=== PATIENT | female | born 1990 | race Caucasian/White ===

== ENCOUNTER → 2019-12-27 14:46 | Outpatient (BNVA) | payer BC, SELFPAY | PROVIDERS: Visit Provider Nurse Practitioner Family | DX: R30.0 Dysuria (principal); N39.0 Urinary tract infection, site not specified | CPT/HCPCS: 80053; 81000; 87077; 87086; 87186 ==

== ENCOUNTER → 2021-04-30 14:14 | Outpatient (BNVA) | payer OTHER, BC, SELFPAY | PROVIDERS: PCP Family Medicine; Visit Provider Registered Nurse Neonatal Intensive Care | DX: J02.0 Streptococcal pharyngitis (principal); Z20.822 Contact with and (suspected) exposure to COVID-19 | CPT/HCPCS: 87635; 87880 ==

== ENCOUNTER → 2021-05-01 01:34 | Outpatient (BNVA) | payer OTHER, BC, SELFPAY | PROVIDERS: PCP Family Medicine; Visit Provider Registered Nurse Neonatal Intensive Care | DX: J02.0 Streptococcal pharyngitis (principal); Z20.822 Contact with and (suspected) exposure to COVID-19 | CPT/HCPCS: 87631 ==

== ENCOUNTER → 2021-05-11 14:02 | Outpatient (BNVA) | payer OTHER, BC, SELFPAY | PROVIDERS: Visit Provider Obstetrics & Gynecology | DX: O20.9 Hemorrhage in early pregnancy, unspecified (principal) | CPT/HCPCS: 84702; 85025; 86850; 86900 ==

== ENCOUNTER 2021-05-13 07:56 | Outpatient (CLI) | payer OTHER, SELFPAY | END 2021-05-13 07:57 | disposition home or self-care (01) | LOC: LAB 08:05 | PROVIDERS: Visit Provider Obstetrics & Gynecology | DX: O20.0 Threatened abortion (principal) | CPT/HCPCS: 84702 ==

== ENCOUNTER → 2021-06-16 11:23 | Outpatient (BNVA) | payer OTHER, MEDICAID, SELFPAY | PROVIDERS: Visit Provider Obstetrics & Gynecology | DX: R87.612 Low grade squamous intraepithelial lesion on cytologic smear of cervix (LGSIL) | CPT/HCPCS: 84315; 87624 ==

== ENCOUNTER 2021-07-14 06:42 | Outpatient (CLI) | payer OTHER, MEDICAID, SELFPAY ==
--- NOTE | 2021-07-14 07:15 | US_ITS ---
WS: [id number] TRANSABDOMINAL PELVIC AND TRANSVAGINAL PELVIC ULTRASOUND HISTORY: R10.2 - Pelvic and perineal pain COMPARISON: None available. Uterus: 8.0 cm x 5.4 cm x 3.2 cm. Normal size anteverted uterus. No fibroid or mass. Endometrium: 0.5 cm. Normal homogeneous endometrium. Right ovary: 5.0 cm x 5.3 cm x 3.2 cm. There is a moderate-sized cyst in the RIGHT adnexa associated with the RIGHT ovary. Cyst measures 4.9 x 2.7 x 4.1 cm. Very little adjacent ovarian tissue. There ar e a few small septations and probably daughter cysts within the RIGHT ovary. Limited color Doppler is identified within the visualized ovarian tissue. Left ovary: 2.2 cm x 1.3 cm x 2.0 cm. Seen best on transabdominal imaging. Normal size. Normal vascul arity. No free fluid. US/US pelvic with transvaginal IMPRESSION: 1. Moderate-sized cyst associated with the RIGHT ovary with septations and pos sible daughter cyst. Cyst measures 4.9 x 2.7 x 4.1 cm. As this is not a complet master simple cyst consider follow-up in 6-8 weeks to be sure the complex cyst res olves. 2. Normal endometrium.
== END 2021-07-14 06:43 | disposition home or self-care (01) ==
LOC: RAD 06:43
PROVIDERS: Visit Provider Obstetrics & Gynecology
DX: R10.2 Pelvic and perineal pain (principal); N83.201 Unspecified ovarian cyst, right side
CPT/HCPCS: 76830; 76856

== ENCOUNTER 2021-09-24 06:56 | Outpatient (CLI) | payer MEDICAID, SELFPAY ==
--- NOTE | 2021-09-24 07:15 | US_ITS ---
WS: [id number] TRANSABDOMINAL PELVIC AND TRANSVAGINAL PELVIC ULTRASOUND HISTORY: R10.2 - Pelvic and perineal pain COMPARISON: 07/14/2021 Uterus: 7.8 cm x 5.0 cm x 3.8 cm. Normal size anteverted uterus. No fibroid or mass. Endometrium: 0.7 cm. Normal homogeneity and vascularity. Right ovary: 5.5 cm x 3.6 cm x 4.2 cm. Continued large complex cyst associated with the RIGHT ovary. Cyst measures 4.2 x 3.3 x 3.6 cm. There are low level echoes throughout. No solid component or increa sed vascularity within this cyst. Cyst has slightly increased in size although the echogenicity remai ns similar. Left ovary: 3.6 cm x 2.9 cm x 2.9 cm. There are a few small follicles. Normal vascularity. No mass. Small amount of simple free fluid in the cul-de-sac. US/US pelvic with transvaginal IMPRESSION: 1. Mild increase in size of the minimally complex RIGHT ovarian cyst since 07/14. Cyst now measures 4.2 x 3.3 x 3.6 cm. Hemorrhagic cyst versus endometrio ma should be considered. Continued imaging follow-up and [employer] ASSOCIATE evaluation recomme nded. 2. Otherwise negative.
== END 2021-09-24 06:57 | disposition home or self-care (01) ==
LOC: RAD 06:58
PROVIDERS: Visit Provider Obstetrics & Gynecology
DX: R10.2 Pelvic and perineal pain (principal); N83.209 Unspecified ovarian cyst, unspecified side
CPT/HCPCS: 76830; 76856

== ENCOUNTER 2022-06-15 11:07 | Outpatient (CLI) | payer OTHER, MEDICAID, SELFPAY ==
[2022-06-15] VITALS (16 sets, daily range): BP systolic 130–137; BP diastolic 75–78; PULSE 74–90; O2SAT 97–99; BMI 28.0
--- NOTE | 2022-06-15 11:42 | US_ITS ---
WS: [id number] ULTRASOUND OB LIMITED TECHNIQUE: Limited ultrasound examination of the fetus. CLINICAL INFORMATION: decel COMPARISON: February 23, 2022 FINDINGS: Cervix is long and closed measuring 5.1 cm. RIGHT ovarian cyst measuring 6.7 x 5.1 x 7.9 cm with a small amount of internal debris and slight mural nodularity. Recommend follow-up . Single interuterine gestation. presentation is vertex Placental location is anterior. Placenta grade: 1-2 heart rate 126 BPM. Largest vertical fluid pocket 3.6 cm Biophysical profile 8 out of 8. breathin movement: 2 tone: 2 Amniotic fluid: 2 US/US OB BPP wo NST [id number] IMPRESSION: 1. Cervix is long and closed measuring 5.1 cm. 2. presentation is vertex. 3. Largest vertical fluid pocket 3.6 cm 4. Normal biophysical profile 8 out of 8 5. Large RIGHT ovarian cyst measuring 6.7 x 5.1 x 7.9 cm with a small amount o f internal debris and slight mural nodularity. Recommend follow-up .
== END 2022-06-15 12:45 | disposition home or self-care (01) ==
LOC: OPOB 11:08 → OBGYN 11:09
PROVIDERS: Visit Provider Family Medicine
DX: O26.899 Other specified pregnancy related conditions, unspecified trimester (principal); Z3A.00 Weeks of gestation of pregnancy not specified; R10.9 Unspecified abdominal pain
CPT/HCPCS: 59025; 76819; 99211

== ENCOUNTER 2022-06-20 15:00 | Inpatient (IN) | payer OTHER, MEDICAID, SELFPAY ==
[2022-06-20] VITALS (38 sets, daily range): BP systolic 126–179; BP diastolic 63–102; PULSE 71–110; RESP 18; TEMP 36.5–36.6; O2SAT 99–100; BMI 25.8
[2022-06-20 15:45] LABS: Basophils # 0.1 10^3/uL (0.0-0.1); Basophils % 0.4 %; Eosinophils # 0.2 10^3/uL (0.0-0.8); Eosinophils % 1.4 %; Hematocrit 35.3 % (37.0-47.0); Hemoglobin 11.5 g/dL (11.5-15.3); Lymphocytes % 21.3 %; Mean Corpuscular HGB Conc 32.6 g/dL (30.0-36.0); Mean Corpuscular Hemoglobin 29.1 pg (28.0-34.0); Mean Corpuscular Volume 89.4 fl (81-99); Mean Platelet Volume 11.8 fL (7.4-10.4); Monocytes % 7.5 %; Neutrophils # 9.53 10^3/uL (1.8-7.7); Nucleated Red Blood Cells % 0 %; Platelet Count 250 10^3/cmm (130-400); Red Blood Count 3.95 10^6/uL (4.1-5.3); Red Cell Distribution Width 12.7 % (12.1-15.1); White Blood Count 13.8 10^3/uL (4.0-10.0)
[2022-06-20] MEDS: ampicillin 2,000 MG in sodium chloride 0.9% (plus) 50 ML 100 MG IV (15:45)
[2022-06-20 16:03] LABS: Nitrazine Paper, PH Positive
[2022-06-20] MEDS: miSOPROStol 100 mcg tablet 25 MCG SUBLINGUAL (16:14)
[2022-06-20] MEDS: dextrose 5%-lactated ringers 1,000 ML 125 ML IV (16:15)
--- NOTE | 2022-06-20 17:54 | P.HP_ITS ---
Providers/Chief Complaint Admitting Physician: Vishal Zamora MD Chief Complaint: Poss SROM HPI VESSEL ORDINARY SEAMAN History of Present Illness Cassy Adan is a 31 year old 3 para 1-0-1-1 female at 37 weeks and 4 days estimated gestational age presenting with spontaneous rupture of membranes. She began noticing leaking this morning at about 5:00 AM. Her membranes have been ruptured for about 12 hours assuming that is when her membranes ruptured. She presented to the hospital where she was noted to have grossly ruptured membranes that were nitrazine positive. Otherwise, she has not had any significant problems during her . There have been no other complications or concerns. Her labs are as follows. Her rubella status is immune. Her blood type is a positive. She is GBS positive. The remainder of her infectious disease profile was within normal limits. She was noted to have a complex cyst on her ultrasound. Present Details : 3 Para: 2 Review of Systems General: Reports: 10 or more systems reviewed and unremarkable except in HPI and below Const: Reports: fatigue; Denies: fever(s) Eyes: Denies: change in vision Card: Denies: chest pain Musc: Reports: back pain [place]/Lymph: Denies: easy bruising Medications/Allergies Home Medications Medication Instructions Recorded Confirmed Last Taken Type prenat.vits,tim,fxs-[id number]-[id number] 1 tab PO DAILY 05/13/21 09/29/21 Unknown History Allergies Allergy/AdvReac Type Severity Reaction Status Date / Time No Known Allergies Allergy Verified 09/29/21 08:32 PFSH VESSEL ORDINARY SEAMAN PFSH: Medical History No pertinent past medical history Denies diabetes, asthma, hypertension, seizures, DVT/PE PCP: None---used to see Dr. Dowling in [place] Surgical History No history of previous surgery Family History Family/Other Breast cancer maternal aunt, diagnosed at age 60 Cervical cancer maternal aunt x 2 Grandmother Breast cancer maternal, diagnosed at age 62 Diabetes paternal Grandfather Heart disease paternal Hypertension paternal Denies family history of Colon cancer Ovarian cancer Hyperlipidemia Uterine cancer Thyroid condition Stroke History History History 3 Term 1 0 Miscarriages/Ectopic 1 Living Children 1 Vitals/I&O/Wt Last Vital Signs Temp 97.7 F 06/20/22 14:46 Pulse 80 06/20/22 17:47 Resp 18 06/20/22 14:46 BP 133/74 06/20/22 17:47 O2 Del Method 06/20/22 15:00 Weight last 48 hrs Weight 165 lb Physical Exam Const: COMMON NORMALS: patient oriented x3 and alert HENMT: COMMON NORMALS: moist oral mucous membranes HEAD & SCALP: normal to inspection Chest: COMMONS NORMALS: normal inspection of the chest Resp: COMMON NORMALS: clear to auscultation bilaterally AUSCULTATION: clear to auscultation bilaterally Cardio: COMMON NORMALS: regular rate and regular rhythm RATE: regular rate RHYTHM: regular rhythm GI: INSPECTION: Yes normal to inspection and Yes other (Gravid) Extremity: COMMON NORMALS: normal to inspection GENERAL: Yes edema (Trace) Neuro: COMMON NORMALS: patient oriented x3, moves all extremities and no sensory deficits noted SENSORIUM/ORIENTATION: Yes alert Psych: COMMON NORMALS: mental status grossly normal Skin: COMMON NORMALS: no rashes or lesions noted GENERAL SKIN EXAM: no rashes or lesions noted Data 06/20/22 15:19 A&P Assessment and plan (1) 37 weeks gestation of : We will augment the patient's labor with Cytotec. Depending on how she responds that we will consider Pitocin. She is being placed on group B strep protocol. We anticipate vaginal delivery. We will continue group B strep protocol. (2) Spontaneous rupture of membranes: (3) Positive GBS test: Attestations Medical Necessity Statement*: I anticipate routine vaginal delivery and care Coding Level of Care Code Acute Code for Chg Fwd Diagnoses 37 weeks gestation of Z3A.37 Spontaneous rupture of membranes Positive GBS test B95.1
[2022-06-20] MEDS: ampicillin 1,000 MG in sodium chloride 0.9% (plus) 50 ML 100 MG IV ×2 (19:19→23:34)
[2022-06-20] MEDS: oxytocin 30 UNIT/500 ML BAG IV (20:45)
[2022-06-20] MEDS: lactated ringers 1,000 ML 999 ML IV (21:55)
--- NOTE | 2022-06-20 22:40 | P.ANESASSM_ITS ---
Pre-Anesthetic Assessment Height/Weight: Height 1.7 m Weight 74.843 kg Temp Pulse Resp BP O2 Del Method 97.7 F 83 18 128/69 06/20/22 14:46 06/20/22 21:04 06/20/22 14:46 06/20/22 21:04 06/20/22 15:00 Preop Diagnosis: labor epidural Familial anesthetic complications: none Was Beta Tapan taken within 24 hours: N/A Was Clonidine taken within 24 hours: N/A Last Intake: 20:00 Social Tobacco and No alcohol 1/2 pack(s) per day 11yrs pack years Exam alert, oriented x 3, clear to auscultation bilaterally and regular rate & rhythm Airway Submandibular: within normal limits Cervical ROM: within normal limits Mallampati: Class II Dentition: false (upper with tongue ring) Pulmonary None reported CV/HEM None reported None reported Hepatic None reported GI Gastroesophageal Reflux Disease (with ) Metabolic None reported Musc/skel None reported Neuropsych None reported Anesthetic Plan ASA status: 2 Anesthesia: Regional (specify below) (epidural) Risk of > 500 ml blood loss (7ml/kg in children): No Medications/Allergies Home Medications Medication Instructions Recorded Confirmed Last Taken Type prenat.vits,tim,qwk-ckpx-yesfk 1 tab PO DAILY 05/13/21 09/29/21 Unknown History Allergies Allergy/AdvReac Type Severity Reaction Status Date / Time No Known Allergies Allergy Verified 09/29/21 08:32 Current Medications Generic Name Dose Route Start Last Admin Trade Name Freq PRN Reason Stop Dose Admin Dextrose/Lactated Ringer's 1,000 mls @ 125 mls/hr 06/20/22 14:45 06/20/22 16:15 Dextrose 5%-Lactated Ringers IV 125 mls/hr .Q8H OBINNA Administration Ampicillin Sodium 1,000 mg/ 50 mls @ 100 mls/hr 06/20/22 19:15 06/20/22 19:19 Sodium Chloride IV 100 mls/hr Q4H OBINNA Administration Protocol Oxytocin 30 unit in 500 mls @ 1 mls/hr 06/20/22 20:30 06/20/22 22:05 Pitocin IV 3 milliunit/min .Q24H OBINNA 3 mls/hr Titration Protocol 1 MILLIUNIT/MIN Lactated Ringer's 1,000 mls @ 999 mls/hr 06/20/22 21:46 06/20/22 21:55 Lactated Ringers IV 999 mls/hr .Q1H1M PRN Administration See label comments [facility] Anesthesia Medical History No pertinent past medical history Denies diabetes, asthma, hypertension, seizures, DVT/PE PCP: None---used to see Dr. Dowling in [place] Surgical History No history of previous surgery Family History Family/Other Breast cancer maternal aunt, diagnosed at age 60 Cervical cancer maternal aunt x 2 Grandmother Breast cancer maternal, diagnosed at age 62 Diabetes paternal Grandfather Heart disease paternal Hypertension paternal Denies family history of Colon cancer Ovarian cancer Hyperlipidemia Uterine cancer Thyroid condition Stroke Female Reproductive History : 3 Data Anesthesia 06/20/22 15:19 Short CBC 06/20/22 Range/Units 15:19 WBC 13.8 H (4.0-10.0) 10^3/uL Hgb 11.5 (11.5-15.3) g/dL Hct 35.3 L (37.0-47.0) % MCV 89.4 (81-99) fl Plt Count 250 (130-400) 10^3/cmm Neut % (Auto) 69.0 % Neut # (Auto) 9.53 H (1.8-7.7) 10^3/uL Cardiac Studies: No Data to Display
--- NOTE | 2022-06-20 23:14 | ANES.PREANE2 ---
Pre-Anesthetic Assessment Height/Weight: Height 1.7 m Weight 74.843 kg Temp Pulse Resp BP Pulse Ox O2 Del Method 97.7 F 83 18 132/71 99 06/20/22 14:46 06/20/22 23:11 06/20/22 14:46 06/20/22 23:11 06/20/22 22:57 06/20/22 15:00 Preop Diagnosis: labor Medications/Allergies Home Medications Medication Instructions Recorded Confirmed Last Taken Type prenat.vits,tim,ozi-pnyv-awbdy 1 tab PO DAILY 05/13/21 09/29/21 Unknown History Allergies Allergy/AdvReac Type Severity Reaction Status Date / Time No Known Allergies Allergy Verified 09/29/21 08:32 Current Medications Generic Name Dose Route Start Last Admin Trade Name Freq PRN Reason Stop Dose Admin Dextrose/Lactated Ringer's 1,000 mls @ 125 mls/hr 06/20/22 14:45 06/20/22 16:15 Dextrose 5%-Lactated Ringers IV 125 mls/hr .Q8H OBINNA Administration Ampicillin Sodium 1,000 mg/ 50 mls @ 100 mls/hr 06/20/22 19:15 06/20/22 19:19 Sodium Chloride IV 100 mls/hr Q4H OBINNA Administration Protocol Oxytocin 30 unit in 500 mls @ 1 mls/hr 06/20/22 20:30 06/20/22 22:05 Pitocin IV 3 milliunit/min .Q24H OBINNA 3 mls/hr Titration Protocol 1 MILLIUNIT/MIN Lactated Ringer's 1,000 mls @ 999 mls/hr 06/20/22 21:46 06/20/22 21:55 Lactated Ringers IV 999 mls/hr .Q1H1M PRN Administration See label comments [facility] Anesthesia Medical History No pertinent past medical history Denies diabetes, asthma, hypertension, seizures, DVT/PE PCP: None---used to see Dr. Dowling in [place] Surgical History No history of previous surgery Family History Family/Other Breast cancer maternal aunt, diagnosed at age 60 Cervical cancer maternal aunt x 2 Grandmother Breast cancer maternal, diagnosed at age 62 Diabetes paternal Grandfather Heart disease paternal Hypertension paternal Denies family history of Colon cancer Ovarian cancer Hyperlipidemia Uterine cancer Thyroid condition Stroke Female Reproductive History : 3 Data Anesthesia 06/20/22 15:19 Short CBC 06/20/22 Range/Units 15:19 WBC 13.8 H (4.0-10.0) 10^3/uL Hgb 11.5 (11.5-15.3) g/dL Hct 35.3 L (37.0-47.0) % MCV 89.4 (81-99) fl Plt Count 250 (130-400) 10^3/cmm Neut % (Auto) 69.0 % Neut # (Auto) 9.53 H (1.8-7.7) 10^3/uL Cardiac Studies: No Data to Display Anesthesia Procedures Epidural Time Out Performed: Yes Consents Signed: Procedure Consent and NPO Consent Consent: requested by attending/covering physician, from patient, risks and benefits reviewed and patient agrees to proceed Lumbar Level: L3-L4 Epidural position: sitting Epidural procedure: sterile prep of area (betadine), 1% lidocaine to numb the area (3ml), 18 g needle, neg for paresthesia, test dose given, 1.5% xylocaine 1:200k epi (3ml/2ml), 0.2% Ropivacaine bolus ml (5ml), placed PCEA, no systemic response, sterile dressing applied, L.U.D. no apparent complications and 0.2% Ropiavacaine @ mls/hr (13ml/hr)
[2022-06-21] VITALS (31 sets, daily range): BP systolic 115–186; BP diastolic 62–100; PULSE 67–96; RESP 16–18; TEMP 36.6–37.3; O2SAT 97–99
[2022-06-21] MEDS: ampicillin 1,000 MG in sodium chloride 0.9% (plus) 50 ML 100 MG IV (03:49)
--- NOTE | 2022-06-21 03:54 | ANES.PROC ---
Anesthesia Procedures Procedure/Date: 06/21/22 Epidural bolus Procedure Narrative: Called to OB 5 pt complaint of left sided pain. Pt noted to be on right side. Pt placed on left side and given 1% Lidocaine MPF with 100mcg Fentanyl MPF via epidural. Monitored pt for next 2 contractions and she states much improved and just pressure noted. Will continue to monitor
[2022-06-21] MEDS: oxytocin 30 UNIT/500 ML BAG 600 UNIT IV (05:44)
--- NOTE | 2022-06-21 05:55 | PM.DELIVERY ---
Delivery Note: Date of delivery: June 21, 2022 Pre-delivery diagnoses: 1. 31-year-old 3 para 1-0-1-1 at 37 weeks estimated gestational age presenting with spontaneous rupture of membranes 2. GBS positive status Post-delivery diagnoses: Status post spontaneous vaginal delivery Procedure: Spontaneous vaginal delivery Delivering Physician: Vishal Zamora Estimated blood loss (mL): 100 Pre-Delivery Course: The patient presented to the hospital with spontaneous rupture membranes. She was having some mild contractions, but her cervix was still firm and thick. Cytotec x1 was placed. Group B strep protocol was placed. And she received multiple doses. Pitocin was initiated. Delivery: DELIVERY: The patient progressed to complete without difficulty. She delivered a male with a weight of 6 pounds 2 ounces with Apgars of 10, 10. The baby was delivered from the CORONA position and placed on the mother's abdomen. The cord was then clamped and cut. There was no nuchal cord. There was no meconium. The placenta and 3 vessel cord were delivered intact shortly thereafter. The perineum and vaginal vault were carefully examined. No lacerations were noted. Both the mother and the baby were in stable condition. Post-Delivery Status: Good History History History 3 Term 1 0 Miscarriages/Ectopic 1 Living Children 1 A&P Assessment and plan (1) Spontaneous vaginal delivery: I anticipate routine care. (2) Positive GBS test: (3) 37 weeks gestation of : Coding Level of Care Code Acute Code for Chg Fwd Diagnoses Spontaneous vaginal delivery O80 Positive GBS test B95.1 37 weeks gestation of Z3A.37
--- NOTE | 2022-06-21 08:07 | ANE.PACU2 ---
Inpatient post-anesthesia follow up: Airway intact: Yes Vital signs: Temperature 99.0 F Pulse Rate 86 Respiratory Rate 18 Blood Pressure 154/90 Pulse Oximetry 99 Oxygen Delivery Me thod Room Air Oxygen Flow Rate Fraction of Inspir ed Oxygen Hydration adequate: Yes Nausea and vomiting: No Pain level: 2 Mental status: Baseline
[2022-06-21] MEDS: docusate sodium 100 mg Capsule PO ×2 (08:20→20:17)
[2022-06-21] MEDS: ibuprofen 800 mg tablet PO ×3 (08:20→20:17)
[2022-06-21] MEDS: prenatal vitamin Capsule 1 CAP PO (08:20)
[2022-06-21] MEDS: HYDROcodone-acetaminophen 5-325 mg Tablet PO ×2 (14:06→20:17)
[2022-06-21] MEDS: benzocaine-menthol 78 gm Canister 1 SPRAY TOPICAL (15:06)
[2022-06-21 18:11] LABS: Hematocrit 33.3 % (37.0-47.0); Mean Corpuscular Hemoglobin 29.5 pg (28.0-34.0); Mean Corpuscular Volume 89.3 fl (81-99); Mean Platelet Volume 11.8 fL (7.4-10.4); Platelet Count 241 10^3/cmm (130-400); Red Blood Count 3.73 10^6/uL (4.1-5.3); White Blood Count 21.3 10^3/uL (4.0-10.0)
[2022-06-22 04:02] VITALS: BP 130/82; PULSE 74; RESP 18; TEMP 36.6; O2SAT 99
[2022-06-22 07:48] VITALS: BP 148/91; PULSE 70; RESP 16; TEMP 36.7; O2SAT 100
--- NOTE | 2022-06-22 08:07 | P.DS_ITS ---
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 Her labor was augmented with Cytotec and Pitocin. She was also GBS positive and was on group B strep protocol throughout her labor. She progressed to complete and had an unremarkable vaginal delivery of a healthy male infant. Her course was unremarkable. Her bleeding was within normal limits. Her pain was well controlled. Her breast-feeding went reasonably well, but she was concerned about volume the baby was getting, and elected to supplement with formula. Information Peripartum Data: Infant Delivery Method: Vaginal Physical Exam Narrative: The patient is alert. She appears comfortable. Her heart has a regular rate and rhythm with no murmurs appreciated. Lungs are clear to auscultation bilaterally. Her fundus is firm and below the umbilicus. Urinary Catheter Management: Pineda: Cath Placed During This Visit: yes Urinary Catheter Date of Insertion: 06/20/22 Urinary Catheter Time of Insertion: 23:39 History History History 3 Term 1 0 Miscarriages/Ectopic 1 Living Children 1 Discharge Data Studies Completed and Pending Laboratory Results WBC 21.3 10^3/uL (4.0-10.0) H 06/21/22 17:45 RBC 3.73 10^6/uL (4.1-5.3) L 06/21/22 17:45 Hgb 11.0 g/dL (11.5-15.3) L 06/21/22 17:45 Hct 33.3 % (37.0-47.0) L 06/21/22 17:45 MCV 89.3 fl (81-99) 06/21/22 17:45 MCH 29.5 pg (28.0-34.0) 06/21/22 17:45 MCHC 33.0 g/dL (30.0-36.0) 06/21/22 17:45 RDW 13.0 % (12.1-15.1) 06/21/22 17:45 Plt Count 241 10^3/cmm (130-400) 06/21/22 17:45 MPV 11.8 fL (7.4-10.4) H 06/21/22 17:45 Neut % (Auto) 69.0 % 06/20/22 15:19 Lymph % (Auto) 21.3 % 06/20/22 15:19 [place] % (Auto) 7.5 % 06/20/22 15:19 Eos % (Auto) 1.4 % 06/20/22 15:19 Baso % (Auto) 0.4 % 06/20/22 15:19 Neut # (Auto) 9.53 10^3/uL (1.8-7.7) H 06/20/22 15:19 Lymph # (Auto) 3.0 10^3/uL (0.8-4.8) 06/20/22 15:19 [place] # (Auto) 1.0 10^3/uL (0.2-0.9) H 06/20/22 15:19 Eos # (Auto) 0.2 10^3/uL (0.0-0.8) 06/20/22 15:19 Baso # (Auto) 0.1 10^3/uL (0.0-0.1) 06/20/22 15:19 Nucleated RBC % (auto) 0 % 06/20/22 15:19 Nucleated RBCs # 0.0 /100WBC 06/20/22 15:19 Vitals Last Vital Signs Temp 98.0 F 06/22/22 07:48 Pulse 70 06/22/22 07:48 Resp 16 06/22/22 07:48 BP 148/91 06/22/22 07:48 Pulse Ox 100 06/22/22 07:48 O2 Del Method 06/22/22 07:48 Discharge Plan Discharge Patient Disposition: Home Prescriptions: New ibuprofen 800 mg Tablet 800 mg PO TID Qty: 45 0RF Continued prenat.vits,tim,xtc-odkq-rqsua Tablet 1 tab PO DAILY Discharge Orders: Discharge Order (Routine); Ordered 06/22/22 Ordered By: Vishal Zamora Referrals: Suzanne Berry MD [Physician] - 6 Weeks Discharge Diet: Usual diet Discharge Activity: Limit activity as instructed Patient Instructions: Opioid Safety 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
[2022-06-22 09:18] VITALS: BP 142/90; PULSE 87; RESP 16; TEMP 36.8; O2SAT 99
[2022-06-22 09:20] VITALS: BP 142/90; PULSE 87; RESP 16; TEMP 36.8; O2SAT 99
== END 2022-06-22 09:21 | disposition home or self-care (01) | DRG 807 ==
LOC: OPOB 06-28 08:06 → OBGYN 06-28 08:07
PROVIDERS: Family Medicine; Admitting Provider Family Medicine; Visit Provider Family Medicine
DX: O99.824 Streptococcus B carrier state complicating childbirth (principal); Z37.0 Single live birth; Z3A.37 37 weeks gestation of pregnancy; O99.334 Smoking (tobacco) complicating childbirth
CPT/HCPCS: 12345; 36415; 51702; 59025; 59409; 83986; 85025; 85027; 96374; 99211; J0290; J2590; J2795; J3010; J7120; J7121

== ENCOUNTER → 2024-05-02 14:12 | Outpatient (BNVA) | payer OTHER, SELFPAY | PROVIDERS: PCP Family Medicine; Visit Provider Podiatrist Foot & Ankle Surgery | DX: M79.671 Pain in right foot (principal); M79.672 Pain in left foot; M20.11 Hallux valgus (acquired), right foot; M20.12 Hallux valgus (acquired), left foot | CPT/HCPCS: 73630 ==

== ENCOUNTER 2024-07-16 05:55 | Day surgery (SDC) | payer OTHER, SELFPAY ==
[2024-07-16] VITALS (10 sets, daily range): BP systolic 137–159; BP diastolic 89–109; PULSE 64–96; RESP 11–21; TEMP 36.1–36.8; O2SAT 98–100; BMI 20.9
--- NOTE | 2024-07-16 06:02 | ANES.PREANE2 ---
Pre-Anesthetic Assessment Height/Weight: Height 5 ft 7 in Preop Diagnosis: Hallux valgus Operation Date: 07/16/24 07:00 Proposed Procedures p Bunionectomy Lapidus(Right) - Albert Funez DPM Was Beta Tapan taken within 24 hours: N/A Was Clonidine taken within 24 hours: N/A Social Tobacco and No alcohol Airway Submandibular: within normal limits Cervical ROM: within normal limits Mallampati: Class I Comments: Comments: Edentulous Anesthetic Plan ASA status: 3 Anesthesia: General Other: No prior issues with anesthesia NPO since yesterday evening Patient states that she normally runs high on blood pressure. Preop BP 159/109. No antihypertensives. Current smoker History of anxiety, on chronic diazepam METs greater than 4 Plan for general anesthesia with LMA Medications/Allergies Home Medications ?Medication ?Instructions ?Recorded ?Confirmed ?Last Taken ?Type norethindrone-ethinyl estradiol 1 tab PO DAILY 06/03/23 07/16/24 07/15/24 History triphasic 0.5/1/0.5 mg-35 mcg tablet diazepam 5 mg tablet 5 mg PO BID PRN anxiety 30 days 11/09/23 07/16/24 07/10/24 Rx #60 tabs Custom Orthotics #1 ea 05/02/24 07/11/24 Unknown Rx crutches #1 ea 07/11/24 07/11/24 Unknown Rx knee scooter #1 ea 07/11/24 07/11/24 Unknown Rx Allergies Allergy/AdvReac Type Severity Reaction Status Date / Time No Known Allergies Allergy Verified 07/16/24 06:04 [facility] Anesthesia Medical History (Updated 07/13/24 @ 09:51 by Lesia Riggs RN) Mucinous cystadenocarcinoma of right ovary Family history of ovarian cancer Ovarian torsion No pertinent past medical history Denies diabetes, asthma, hypertension, seizures, DVT/PE PCP: None---used to see Dr. Dowling in [place] Surgical History (Updated 07/13/24 @ 09:51 by Lesia Riggs RN) No history of previous surgery Family History Family/Other Breast cancer maternal aunt, diagnosed at age 60 Cervical cancer maternal aunt x 2 Grandmother Breast cancer maternal, diagnosed at age 62 Diabetes paternal Grandfather Heart disease paternal Hypertension paternal Denies family history of Colon cancer Ovarian cancer Hyperlipidemia Uterine cancer Thyroid disease Stroke Social History Smoking and tobacco/nicotine status: never used tobacco/nicotine Alcohol intake: never Substance/Drug Use: never Adopted: No service: No Current occupational exposures/hazards: No Do you think of yourself as: Straight/Heterosexual Data Anesthesia Cardiac Studies: No Data to Display
[2024-07-16] MEDS: scopolamine 1 mg PATCH 1 PATCH TRANSDERMA (06:36)
[2024-07-16] MEDS: CELEcoxib 200 mg Capsule 400 MG PO (06:36)
[2024-07-16] MEDS: gabapentin 300 mg Capsule PO (06:36)
[2024-07-16] MEDS: midazolam 1 mg/mL INJ 2 mL 2 MG IVP (06:37)
[2024-07-16] MEDS: sodium chloride 0.9% 1,000 ML 30 ML IV (06:39)
--- NOTE | 2024-07-16 06:50 | P.HPUD_ITS ---
Surgery/Procedure H&P Update DATE OF PROCEDURE: July 16, 2024 DATE H&P PERFORMED: 07/11/24 H&P UPDATE INFORMATION: I have reviewed H&P completed within last 30 days, I have examined patient prior to procedure, No changes to prior documentation, H&P is in [facility] EMR on date indicated and Risks and benefits of the procedure reviewed PREOP DIAGNOSIS: Hallux valgus PLANNED PROCEDURE: Operation Date: 07/16/24 07:00 Proposed Procedures p Bunionectomy Lapidus(Right) - Albert Funez DPM
[2024-07-16] MEDS: ceFAZolin 2,000 mg SDV 2000 MG IVP (07:22)
--- NOTE | 2024-07-16 08:05 | ANES.PROC ---
Anesthesia Procedures Procedure/Date: 07/16/24 Nerve Block ^: Nerve Block 1: Main Anesthesia: general anesthesia Time Out Performed: Yes Consent: requested by attending/covering physician and from patient Nerve block location: popliteal Anesthesia monitors applied: pulse oximetry, EKG, BP cuff and oxygen Nerve block position: supine Anesthetic Used: ropivicaine 0.5% Amount of anesthesia used (mL): 25 Ultrasound used to: recognize landmarks Nerve Stimulator Used?: Yes Interscalene/Femoral BLK: other needle (pjunk) Injection: neg aspiration of heme Patient Tolerated Procedure: well Complications: none Additional Comments: Decadron 4 mg added to block Nerve Block 2: Main Anesthesia: general anesthesia Time Out Performed: Yes Consent: requested by attending/covering physician and from patient Nerve block location: adductor canal Anesthesia monitors applied: pulse oximetry, EKG, BP cuff and oxygen Nerve block position: supine Anesthetic Used: ropivicaine 0.5% Amount of anesthesia used (mL): 15 Ultrasound used to: recognize landmarks Nerve Stimulator Used?: Yes Interscalene/Femoral BLK: other needle (pjunk) Injection: neg aspiration of heme Patient Tolerated Procedure: well Complications: none
--- NOTE | 2024-07-16 08:23 | XR_ITS ---
WS: [id number] Exam: XR foot RT 2V [id number] Date/Time of Exam: 07/16/2024 8:23 AM Reason For Exam: OR PIC, BUNIONECTOMY AP and lateral intraoperative images of the RIGHT foot are submitted. There is operative fusion of the first metatarsal cuneiform joint with plate and screw fixation. Alignment appears to be satisfactory.
--- NOTE | 2024-07-16 09:35 | W.PM.BPON ---
Date of procedure: 07/16/2024 Surgeon name: Lars GhoshPOnelia Junior Programmer Analyst(s) name(s): Juan Luis Procedure(s) performed: Right foot Lapidus bunionectomy Description of findings: Right foot hallux valgus Estimated blood loss: 5 cc Tourniquet time: 99 minutes Specimen(s) removed: None Post-operative diagnosis: Right foot hallux valgus
--- NOTE | 2024-07-16 09:36 | PM.OP ---
Operative Report Date of procedure: July 16, 2024 Surgeon: Albert Funez DPM Procedure: Date of procedure: 07/16/2024 Pre-op diagnosis: Right foot hallux valgus Post-op diagnosis: Same Post-op findings: Right foot hallux valgus Procedure done: Right foot Lapidus bunionectomy CPT 56302 Implants: 2.7 headed short threaded compression screw, 6 hole T plate from [employer] allograft bone graft, 1 cc of DBM Specimens removed: None Surgeon: Dr. Albert Funez DPM Soaping Machine Back Tender: Juan Luis Estimated blood loss: 5 cc Tourniquet time: 99 minutes Complications: None Patient is a 34-year-old female that has a history of right foot hallux valgus. The patient has had the aforementioned chief complaint for some time. Conservative treatment measures have been attempted and the patient has opted for surgical intervention at this time. A lengthy discussion regarding the procedure, including risks and complications has been had with the patient and is noted in the recent clinic note. Written and verbal consent have been obtained. All patient questions have been answered to the patient?s satisfaction. No written or verbal guarantees have been given or implied. The patient has been NPO since midnight. The history has been reviewed and the history and physical is current. The signed consent was confirmed and placed in the patient chart. Patient imaging has been reviewed and is consistent with the diagnosis. Under mild sedation, the patient was brought into the operating room and placed on the table in the supine position. IV antibiotics were given by the anesthesia team as preoperative surgical prophylaxis. General sedation was then performed by the anesthesiateam. A popliteal block was performed with anesthesia department. A pneumatic tourniquet was then placed about the right thigh. The operative extremity was then prepped and draped in the usual fashion. The extremity was then elevated and exsanguinated before the tourniquet was inflated to 325 mmHg. After inflation, the following procedure was then performed. Attention was directed to the medial aspect of the right foot where a 5 cm incision was made overlying the first tarsometatarsal joint using a #15 blade. Dissection was carried down through subcutaneous and superficial fascia to the level of the first tarsometatarsal joint. After exposing the joint and releasing capsular attachments sagittal bone saw was used to resect the first tarsometatarsal articulation removing cartilage and subchondral bone. Attention was then directed distally where a lateral soft tissue release was performed percutaneously using a #15 blade. Due to patient's Cornell's foot type extension of first metatarsal was warranted. 2 allograft bone graft discs were inserted into the arthrodesis site after fenestration drill bit was used to fenestrate the articular surfaces. These bone grafts were soaked in whole blood prior to insertion. The first metatarsal was reduced to appropriate anatomic position. 2.7 headed compression screw was then driven across the arthrodesis site. Good compression across the joint was noted. Next, 6 hole T plate from [employer] was used to span the arthrodesis site. Good positioning of orthopedic hardware and first ray was noted clinically as well as on C-arm imaging. The site was irrigated with sterile saline before 1 cc of demineralized bone matrix was injected into the first tarsometatarsal arthrodesis site. Attention was then directed to closure. Deep tissue was closed with 3-0 Vicryl followed by skin closure with 4-0 Vicryl subcutaneously. Steri-Strips were then applied. Stab incisions were closed with 4-0 nylon. Incisions were dressed with Xeroform, 4 x 4 gauze, Kerlix, Med. Patient was placed in a cam boot. The patient tolerated the procedure and anesthesia well and without complication. The patient was transported from the operating room to the recovery room with vital signs stable and vascular status intact to all digits of the right foot. The patient was given both written and verbal instructions to remain non weightbearing to the operative extremity, to keep dressings/splint clean, dry and intact and to take pain medication as directed. The patient will follow-up in the outpatient setting at their scheduled appointment. The patient was discharged with my personal number and was instructed to call if any questions or issues should arise. They were discharged home once anesthesia criteria was met.
[2024-07-16] MEDS: HYDROcodone-acetaminophen 5-325 mg Tablet 1 TAB PO (10:30)
--- NOTE | 2024-07-16 10:45 | ANE.PACU2 ---
Inpatient post-anesthesia follow up: Airway intact: Yes Vital signs: Temperature 97.2 F Pulse Rate 69 Respiratory Rate 18 Blood Pressure 138/91 Pulse Oximetry 100 Oxygen Delivery Me thod Room Air Oxygen Flow Rate Fraction of Inspir ed Oxygen Hydration adequate: Yes Nausea and vomiting: No Pain level: 1 Mental status: Baseline
[2024-07-17 06:11] LABS: OR HCG Qualitative Urine Negative (Negative)
== END 2024-07-16 10:55 | disposition home or self-care (01) ==
PROVIDERS: Student in an Organized Health Care Education/Training Program; PCP Family Medicine; Visit Provider Podiatrist Foot & Ankle Surgery
PROC: (CPT 28297; principal; 2024-07-16 07:00)
DX: M20.11 Hallux valgus (acquired), right foot (principal); F41.9 Anxiety disorder, unspecified; Z79.899 Other long term (current) drug therapy
CPT/HCPCS: 28297; 73620; 76000; 81025; C1713; C1762; C9359; J0690; J1100; J1171; J2250; J2405; J2704; J3010; J7030; J9999

== ENCOUNTER → 2024-07-30 15:25 | Outpatient (BNVA) | payer OTHER, SELFPAY | PROVIDERS: PCP Family Medicine; Visit Provider Podiatrist Foot & Ankle Surgery | DX: M79.671 Pain in right foot (principal); M20.11 Hallux valgus (acquired), right foot | CPT/HCPCS: 73630 ==

== ENCOUNTER → 2024-08-13 14:10 | Outpatient (BNVA) | payer OTHER, SELFPAY | PROVIDERS: PCP Family Medicine; Visit Provider Podiatrist Foot & Ankle Surgery | DX: Z98.890 Other specified postprocedural states (principal); M79.671 Pain in right foot; M20.11 Hallux valgus (acquired), right foot | CPT/HCPCS: 73630 ==

== ENCOUNTER → 2024-08-27 13:38 | Outpatient (BNVA) | payer MEDICAID, SELFPAY | PROVIDERS: PCP Family Medicine; Visit Provider Podiatrist Foot & Ankle Surgery | DX: Z98.890 Other specified postprocedural states (principal); M20.11 Hallux valgus (acquired), right foot | CPT/HCPCS: 73630 ==

== ENCOUNTER → 2024-09-17 15:06 | Outpatient (BNVA) | payer OTHER, MEDICAID, SELFPAY | PROVIDERS: PCP Family Medicine; Visit Provider Podiatrist Foot & Ankle Surgery | DX: M20.11 Hallux valgus (acquired), right foot (principal) | CPT/HCPCS: 73630 ==

== ENCOUNTER 2024-11-05 06:07 | Day surgery (SDC) | payer OTHER, MEDICAID, SELFPAY ==
[2024-11-05] VITALS (10 sets, daily range): BP systolic 102–138; BP diastolic 71–88; PULSE 60–78; RESP 12–18; TEMP 36.1–36.6; O2SAT 99–100; BMI 22.7
--- NOTE | 2024-11-05 | XR_ITS ---
WS: [id number] Right foot, C-arm fluoroscopy views, 11/05/2024 Clinical Data: BIA IMAGES Comparison: Right foot, 09/17/2024 Findings: Dr. Funez performed an osteotomy of the right first toe proximal phalanx and there is a screw at the head of the right second metatarsal. XR/XR foot RT min 3V* 14320 Impression: Postoperative changes of the right foot.
--- NOTE | 2024-11-05 06:25 | ANES.PREANE2 ---
Pre-Anesthetic Assessment Height/Weight: Height 5 ft 7 in Preop Diagnosis: Right bunion Operation Date: 11/05/24 07:00 Proposed Procedures p RIGHT Hallux Parish Osteotomy(Right) - Albert Funez DPM s RIGHT Second Metatarsal Jeremy Osteotomy(Right) - Albert Funez DPM Was Beta Tapan taken within 24 hours: N/A Was Clonidine taken within 24 hours: N/A (Patient has only taken clonidine 1 or 2 times to sleep) Social Tobacco and No alcohol Exam alert, oriented x 3, clear to auscultation bilaterally and regular rate & rhythm Airway Submandibular: within normal limits Cervical ROM: within normal limits Mallampati: Class II Dentition: false Comments: Comments: Upper false plate Anesthetic Plan ASA status: 2 Anesthesia: MAC Other: No prior issues with anesthesia NPO since yesterday evening Current smoker Patient has clonidine on her list but she states she is only taking it 1 or 2 times to help her sleep. None recently METs greater than 4 Plan for MAC anesthesia with local via surgeon Medications/Allergies Home Medications ?Medication ?Instructions ?Recorded ?Confirmed ?Last Taken ?Type norethindrone-ethinyl estradiol 1 tab PO DAILY 06/03/23 11/01/24 11/01/24 History triphasic 0.5/1/0.5 mg-35 mcg tablet Sole Supports #1 ea 09/17/24 10/15/24 Unknown Rx diazepam 5 mg tablet 5 mg PO .At Bedtime PRN anxiety 09/17/24 11/01/24 10/30/24 Rx #30 tabs clonidine HCl 0.1 mg tablet 0.1 mg PO .q hs #30 tabs 10/17/24 11/01/24 10/13/24 Rx Allergies Allergy/AdvReac Type Severity Reaction Status Date / Time No Known Allergies Allergy Verified 10/15/24 14:02 [facility] Anesthesia Medical History (Updated 10/20/24 @ 16:19 by Albert Funez DPM) Mucinous cystadenocarcinoma of right ovary Family history of ovarian cancer Ovarian torsion No pertinent past medical history Denies diabetes, asthma, hypertension, seizures, DVT/PE PCP: None---used to see Dr. Dowling in [place] Surgical History History of salpingectomy History of removal of ovarian cyst Hx of removal of ovary No history of previous surgery Family History Family/Other Breast cancer maternal aunt, diagnosed at age 60 Cervical cancer maternal aunt x 2 Grandmother Breast cancer maternal, diagnosed at age 62 Diabetes paternal Grandfather Heart disease paternal Hypertension paternal Denies family history of Colon cancer Ovarian cancer Hyperlipidemia Uterine cancer Thyroid disease Stroke Social History Smoking and tobacco/nicotine status: never used tobacco/nicotine Alcohol intake: never Substance/Drug Use: never Adopted: No service: No Current occupational exposures/hazards: No Do you think of yourself as: Straight/Heterosexual
--- NOTE | 2024-11-05 06:55 | P.HPUD_ITS ---
Surgery/Procedure H&P Update DATE OF PROCEDURE: November 05, 2024 DATE H&P PERFORMED: 10/15/24 H&P UPDATE INFORMATION: I have reviewed H&P completed within last 30 days, I have examined patient prior to procedure, No changes to prior documentation, H&P is in [facility] EMR on date indicated and Risks and benefits of the procedure reviewed PREOP DIAGNOSIS: Right bunion PLANNED PROCEDURE: Operation Date: 11/05/24 07:00 Proposed Procedures p RIGHT Hallux Parish Osteotomy(Right) - Albert Funez DPM s RIGHT Second Metatarsal Jeremy Osteotomy(Right) - Albert Funez DPM
[2024-11-05] MEDS: ceFAZolin 2,000 mg SDV 2000 MG IVP (07:10)
[2024-11-05] MEDS: BUPivacaine 0.5% INJ 30 mL INJECTION (07:15)
[2024-11-05 07:58] LABS: OR HCG Qualitative Urine Negative (Negative)
--- NOTE | 2024-11-05 08:14 | P.OP_ITS ---
Operative Report Date of procedure: November 05, 2024 Surgeon: Albert Funez DPM Procedure: Date of procedure: 11/05/2024 Pre-op diagnosis: Right hallux valgus, metatarsalgia Post-op diagnosis: Same Post-op findings: Right hallux valgus, elongated second metatarsal Procedure done: 1. Right foot Parish osteotomy CPT 21031 2. Right second metatarsal Ejremy osteotomy CPT 01039 Implants: 2.5 micro headless compression screw from [employer], snap off screw [employer] Specimens removed: None Surgeon: Dr. Albert Funez DPM Formal Service Waiter: Nj Estimated blood loss: 2 cc Complications: None Patient is a 34-year-old female that has a history of right hallux valgus, metatarsalgia. The patient has had the aforementioned chief complaint for some time. Conservative treatment measures have been attempted and the patient has opted for surgical intervention at this time. A lengthy discussion regarding the procedure, including risks and complications has been had with the patient and is noted in the recent clinic note. Written and verbal consent have been obtained. All patient questions have been answered to the patient?s satisfaction. No written or verbal guarantees have been given or implied. The patient has been NPO since midnight. The history has been reviewed and the history and physical is current. The signed consent was confirmed and placed in the patient chart. Patient imaging has been reviewed and is consistent with the diagnosis. Under mild sedation, the patient was brought into the operating room and placed on the table in the supine position. IV antibiotics were given by the anesthesia team as preoperative surgical prophylaxis. MAC sedation was then performed by the anesthesiateam. A pneumatic tourniquet was then placed about the right ankle. A local field block was performed using 0.5% Marcaine plain. The operative extremity was then prepped and draped in the usual fashion. The extremity was then elevated and exsanguinated before the tourniquet was inflated to 250 mmHg. After inflation, the following procedure was then performed. Attention was directed to the right foot where a percutaneous stab incision was made at the level of the hallux interphalangeal joint using a #15 blade. Mariana bur was inserted into the incision and an osteotomy was made to the proximal phalanx in standard Kenny osteotomy fashion. The osteotomy was close down and a wire was driven percutaneously from proximal medial to distal lateral across the proximal phalanx osteotomy. This maintained positioning. Drill was used to drill over the wire in preparation for 2.5 compression screw. This was then inserted over the wire across the osteotomy site. Good positioning of the screw was noted. Good alignment of the hallux was noted. Attention was then directed to the second metatarsophalangeal joint where a 4 cm incision was made over the joint using a #15 blade. Dissection was carried down through subcutaneous the superficial fascia to the level of the metatarsophalangeal joint capsule which was incised to expose the underlying second metatarsal head. Sagittal bone saw was then used to perform a Jeremy osteotomy in standard fashion. The head of the second metatarsal was translated proximally to appropriate anatomic position in regards to the metatarsal parabola. Snap off screw was then inserted across the osteotomy site to maintain position. The incisions were then irrigated with copious months of sterile saline before attention was directed to closure. Deep tissue was closed with 4-0 Vicryl followed by skin closure with 4-0 nylon. Incisions were dressed with Xeroform, 4 x 4 gauze, Kerlix, Med. Tourniquet was let down and good hyperemic response was noted to all digits of the right foot. The patient tolerated the procedure and anesthesia well and without complication. The patient was transported from the operating room to the recovery room with vital signs stable and vascular status intact to all digits of the right foot. The patient was given both written and verbal instructions to remain weightbearing as tolerated in postop shoe to the operative extremity, to keep dressings/splint clean, dry and intact and to take pain medication as directed. The patient will follow-up in the outpatient setting at their scheduled appointment. The patient was discharged with my personal number and was instructed to call if any questions or issues should arise. They were discharged home once anesthesia criteria was met.
[2024-11-05] MEDS: HYDROcodone-acetaminophen 5-325 mg Tablet 1 TAB PO (09:05)
--- NOTE | 2024-11-05 09:38 | ANE.PACU2 ---
Inpatient post-anesthesia follow up: Airway intact: Yes Vital signs: Temperature 97 F Pulse Rate 63 Respiratory Rate 18 Blood Pressure 118/87 Pulse Oximetry 100 Oxygen Delivery Me thod Room Air Oxygen Flow Rate Fraction of Inspir ed Oxygen Hydration adequate: Yes Nausea and vomiting: No Pain level: 1 Mental status: Baseline
== END 2024-11-05 09:38 | disposition home or self-care (01) ==
PROVIDERS: Student in an Organized Health Care Education/Training Program; PCP Family Medicine; Visit Provider Podiatrist Foot & Ankle Surgery
PROC: (CPT 28298; principal; 2024-11-05 07:00)
PROC: (CPT 28308; 2024-11-05 07:00)
DX: M20.11 Hallux valgus (acquired), right foot (principal); M77.41 Metatarsalgia, right foot; Z85.038 Personal history of other malignant neoplasm of large intestine
CPT/HCPCS: 28310; 28308; 73630; 76000; 81025; C1713; J0690; J2250; J2704; J3010; J3490; J7030; J9999

== ENCOUNTER 2024-11-08 11:22 | Outpatient (CLI) | payer OTHER, MEDICAID, SELFPAY | END 2024-11-08 11:23 | LOC: SPT 11:23 | PROVIDERS: PCP Family Medicine; Visit Provider Podiatrist Foot & Ankle Surgery | DX: Z46.89 Encounter for fitting and adjustment of other specified devices (principal); M20.10 Hallux valgus (acquired), unspecified foot | CPT/HCPCS: L3030 ==

== ENCOUNTER → 2024-11-19 14:46 | Outpatient (BNVA) | payer OTHER, MEDICAID, SELFPAY | PROVIDERS: PCP Family Medicine; Visit Provider Podiatrist Foot & Ankle Surgery | DX: Z98.890 Other specified postprocedural states (principal); M20.11 Hallux valgus (acquired), right foot; M77.41 Metatarsalgia, right foot | CPT/HCPCS: 73630 ==

== ENCOUNTER → 2024-12-03 13:29 | Outpatient (BNVA) | payer OTHER, MEDICAID, SELFPAY | PROVIDERS: PCP Family Medicine; Visit Provider Podiatrist Foot & Ankle Surgery | DX: M79.671 Pain in right foot (principal); Z98.890 Other specified postprocedural states; M20.11 Hallux valgus (acquired), right foot; M77.41 Metatarsalgia, right foot | CPT/HCPCS: 73630 ==

== ENCOUNTER → 2025-01-08 11:04 | Outpatient (BNVA) | payer OTHER, MEDICAID, SELFPAY | PROVIDERS: PCP Family Medicine; Visit Provider Family Medicine | DX: N39.3 Stress incontinence (female) (male) (principal); R35.0 Frequency of micturition | CPT/HCPCS: 81000; 87086 ==